=== PATIENT | male | born 1925 | race Caucasian/White ===

== ENCOUNTER 2016-12-11 14:14 | Emergency (ER) | payer OTHER ==
[~2016-12-11 14:14] MED LIST: ASPIRIN81 M1 PO; ATIVAN0.5 MG PO; B-121000 MCG PO; COZAAR50 MG PO; FISH OIL1000 M1; LEVAQUIN500 MG PO; LOVASTATIN40 MG PO; MAGNESIUM400 M1; PRILOSEC20 MG; VITAMIN D-31000 UNIT PO; [UNRECOGNIZED DRUG - OTHER] PO
--- NOTE | 2016-12-11 16:16 | DIAGNOSTIC IMAGING REPORT ---
PROCEDURE: XR ABD SERIES 2V ABD/1V CHEST INDICATION: NAUSEA TECHNIQUE: AP supine and upright views of the abdomen with single view of the chest. COMPARISON: Chest x-ray 07/15/2015. FINDINGS: CHEST: Lungs are clear. Status post mediastinotomy and CABG. Heart size, mediastinum and pulmonary vessels are normal. Bony thorax is unremarkable. ABDOMEN: 1 cm right upper quadrant opacity, artifact versus gallstone. Mild residual stool. Nonspecific right lower quadrant air-fluid levels. No evidence of free air. Severe left hip and lumbar spine degenerative changes. Extensive atherosclerosis of the femoral vessels. IMPRESSION: 1. 1 cm gallstone versus artifact 2. Nonspecific bowel gas pattern.
--- NOTE | 2016-12-11 17:17 | ED CLINICAL REPORT ---
Clinical Report - Physicians/Mid Levels [facility] [address] [place] [address] 12/11/2016 14:15 Patient: NEELAM COSBY Time Seen: 14:41. Arrived- By private vehicle. Historian- spouse. History limited by dementia. Physical Exam limited by dementia. HISTORY OF PRESENT ILLNESS Chief Complaint: spitting up. This started today and is now gone. ([facility]" She isn't sure whether that meant vomiting or coughing. She has noted that he's had a cough productive of a little bit of scant thick white sputum. He says that he feels well denies any pain does not feel short of breath and he denies any nausea or vomiting. His said he has been chronically constipated and that since they've been trying to treat this he occasionally will get some loose stools. She is not sure if he is having a recently). REVIEW OF SYSTEMS No chills, fever, sweats, calf pain or chest pain. No cough, difficulty breathing, pedal edema, palpitations or abdominal pain. No black stools, bloody stools, constipation, diarrhea or nausea. No vomiting or urinary problems. All systems otherwise negative, except as recorded above. PAST HISTORY Problems: Gerd. Alzheimer's Disease. Hypertension. Additional Surgeries: Appendectomy. CABG. Medications: Mom 30ml bid constipation . Enema prn constipation . Bisacodyl Rectal, as needed. Antiacid susp 30ml q 4 hrs prn.. Acetaminophen Oral 650 mg, 3x a day. Vit d3 day. Vit B day. Prazosin HCl Oral (Capsule 2 mg) 1 capsule, at bedtime. Magnesium Oxide -Mg Supplement Oral (Tablet 250 mg) 1/2 tablet, bid . Divalproex Sodium Oral (Tablet Delayed Release 250 mg) 1 tablet, hs. Lovastatin Oral (Tablet 40 mg) 1 tablet, daily. CertaVite/Antioxidants Oral, day. Aspir-81 Oral (Tablet Delayed Release 81 mg). Lisinopril Oral (per , she thinks, unknown dose). Allergies: No Known Drug Allergy. SOCIAL HISTORY No alcohol use or drug use. Resides in a snf. FAMILY HISTORY Denies family medical history. ADDITIONAL NOTES The nursing notes have been reviewed. PHYSICAL EXAM Vital Signs: 12/11/2016 14:37 BP: 154/57. HR: 73. RR: 20. O2 saturation: 98%. Temp: 98.7 F. Pain level now: 0/10. Have been reviewed. Appearance: Alert. He is disoriented, confused and cooperative and appears comfortable and relaxed. He is cheerful. Eyes: Pupils equal, round and reactive to light. ENT: Pharynx normal. Neck: Normal inspection. Neck supple. No meningeal signs or JVD. CVS: Normal heart rate and rhythm. Heart sounds normal. Respiratory: No respiratory distress. Decreased air movement. No rales, rhonchi or wheezes. Abdomen: Soft and nontender. Bowel sounds normal. No organomegaly. No mass. Back: Normal inspection. No CVA tenderness. Skin: Skin warm and dry. Normal skin color. No rash. Normal skin turgor. Extremities: Extremities exhibit normal ROM. No calf tenderness. No lower extremity edema. LABS, X-RAYS, AND EKG EKG: Rate: 70. Occasional ectopic beats. Premature atrial contractions. First-degree atrioventricular block. RBBB. Non-specific ST segment / T wave abnormalities in lead II, III and aVF. EKG unchanged when compared with prior EKG. (15 Jul 2015). The study has been independently viewed by me. KUB: ( Exam(s): XR ABD SERIES 2V ABD/1V CHEST Date of Exam: 12/11/2016 __ PROCEDURE: XR ABD SERIES 2V ABD/1V CHEST INDICATION: NAUSEA TECHNIQUE: AP supine and upright views of the abdomen with single view of the chest. COMPARISON: Chest x-ray 07/15/2015. FINDINGS: CHEST: Lungs are clear. Status post mediastinotomy and CABG. Heart size, mediastinum and pulmonary vessels are normal. Bony thorax is unremarkable. ABDOMEN: 1 cm right upper quadrant opacity, artifact versus gallstone. Mild residual stool. Nonspecific right lower quadrant air-fluid levels. No evidence of free air. Severe left hip and lumbar spine degenerative changes. Extensive atherosclerosis of the femoral vessels. IMPRESSION: 1. 1 cm gallstone versus artifact 2. Nonspecific bowel gas pattern.). The X-rays were interpreted by the radiologist and contemporaneously by me. Laboratory Tests: UA-Culture if indicated: (CLYDE: 12/11/2016 16:50) ( MsgRcvd 12/11/2016 17:13) Final results Test Result Flag Units (Reference) URINE COLOR YELLOW URINE APPEARANCE CLEAR URINE GLUCOSE NEGATIVE (NEGATIVE) URINE BILIRUBIN NEGATIVE (NEGATIVE) URINE KETONE TRACE (NEGATIVE) URINE SPECIFIC GRAVITY 1.025 (1.010-1.030) URINE PH 6.0 (5.0-8.0) URINE PROTEIN TRACE (NEGATIVE) URINE UROBILINOGEN 0.2 EU/dL (0.2-1.0) URINE NITRITE NEGATIVE (NEGATIVE) URINE BLOOD NEGATIVE (NEGATIVE) URINE LEUK ESTERASE NEGATIVE (NEGATIVE) URINE RBC NONE SEEN rbc/hpf (0-1) URINE WBC 0-1 wbc/hpf (0-1) URINE EPITHELIAL CELLS 0-1 EPI/hpf (0-5) URINE BACTERIA NONE SEEN (NONE SEEN) URINE COMMENT CULT NOT INDICATED 1+ MUCUSURINE CULTURES ARE SET-UP BASED ON THE FOLLOWING CRITERIA:POSITIVE NITRITEPOSITIVE LEUKOCYTE ESTERASEGREATER THAN 10 WHITE BLOOD CELLSMODERATE (2+) OR GREATER BACTERIA CBC w Diff: (CLYDE: 12/11/2016 15:30) ( Mscvd 12/11/2016 15:55) Final results Test Result Flag Units (Reference) WHITE BLOOD COUNT 9.0 K/uL (4.5-11.5) RED BLOOD COUNT 4.59 M/uL (4.50-5.90) HEMOGLOBIN 14.2 gm/dL (13.5-17.5) HEMATOCRIT 42.7 % (41.0-53.0) MEAN CELL VOLUME 93 fL (80-100) MEAN CORPUSCULAR HGB 31 pg (26-34) MEAN CORPUSCULAR HGB CONC 33 g/dL (31-37) RED CELL DISTRIBUTION WIDTH 13.7 % (11.6-14.8) PLATELET COUNT 170 K/uL (150-400) NEUTROPHIL % 83.6 H % (50-75) LYMPH % 11.4 L % (25-40) MONO % 4.4 % (3-14) EOSINOPHIL % 0.2 % (0-4) BASOPHIL % 0.4 % (0-2) BNP: (CLYDE: 12/11/2016 15:30) ( MsgRcvd 12/11/2016 16:08) Final results Test Result Flag Units (Reference) B-TYPE NATRIURETIC PEPTIDE 346 H pg/ml (5-100) CMP: (CLYDE: 12/11/2016 15:30) ( MsgRcvd 12/11/2016 16:17) Final results Test Result Flag Units (Reference) GLUCOSE 102 mg/dL (70-110) BUN 26 H mg/dL (7-18) CREATININE 1.5 H mg/dL (0.6-1.3) Estimated GFR 46.84 mL/min Estimated GFR- 56.76 mL/min Note: Persistent reduction over 3 months in eGFR<60 mL/min/1.73 m2 defines CKD. Patients with eGFR values>=60 mL/min/1.73 m2 may also have CKD if evidence ofpersistent proteinuria. Additional information may be foundat www.kidney.org. SODIUM 145 mmol/L (136-145) POTASSIUM 4.1 mmol/L (3.5-5.1) CHLORIDE 109 H mmol/L (98-107) CARBON DIOXIDE 27 mmol/L (21-32) CALCIUM 8.8 mg/dL (8.5-10.1) TOTAL PROTEIN 7.4 g/dL (6.4-8.2) ALBUMIN 3.7 g/dL (3.3-5.0) BILIRUBIN, TOTAL 0.5 mg/dL (0.0-1.0) ALKALINE PHOSPHATASE 75 U/L (46-116) AST (SGOT) 22 U/L (15-37) ALT (SGPT) 27 U/L (12-78) LIPASE 63 L U/L (73-393) AMYLASE 246 H U/L (25-115) CPK 205 U/L (24-260) TROPONIN I 0.06 ng/mL (0.00-1.5) TROPONIN REFERENCE RANGE:<0.1 NEGATIVE0.1-1.5 INDETERMINANT>1.5 POSITIVE . PROGRESS AND PROCEDURES Course of Care: Patient is stable. Patient/family counseled. Old medical records reviewed. Disposition: Discharged. Condition: stable. CLINICAL IMPRESSION Mild congestive heart failure Mild chronic renal insufficiency. INSTRUCTIONS Warnings: GENERAL WARNINGS: Return or contact your physician immediately if your condition worsens or changes unexpectedly, if not improving as expected, or if other problems arise. Your Current Medications: CONTINUE TAKING THE FOLLOWING MEDICATIONS: Acetaminophen Oral : 650 mg 3x a day. Antiacid susp 30ml q 4 hrs prn.*. Aspir-81 Oral : Tablet Delayed Release 81 mg. Bisacodyl Rectal : prn. CertaVite/Antioxidants Oral : day. Divalproex Sodium Oral : Tablet Delayed Release 250 mg, 1 tablet hs. Enema prn constipation *. Lisinopril Oral : per , she thinks, unknown dose. Lovastatin Oral : Tablet 40 mg, 1 tablet daily. Magnesium Oxide -Mg Supplement Oral : Tablet 250 mg, 1/2 tablet bid. Mom 30ml bid constipation *. Prazosin HCl Oral : Capsule 2 mg, 1 capsule at bedtime. Vit B day*. Vit d3 day*. Follow-up: Follow up with your doctor OGRDON MATSON in three days. Call for the next available appointment. Follow up with a literacy education professor- as recommended by your primary care physician. Discharge instructions reviewed with and understanding was verbalized by spouse. (Electronically signed by Geovanni Snider MD 12/12/2016 23:53)
--- NOTE | 2016-12-11 17:17 | ED NURSING NOTES ---
Clinical Report - Nurses [facility] [address] [place] [address] 12/11/2016 14:15 Patient: NEELAM COSBY TRIAGE Triage time 14:30. Acuity: LEVEL 3. Chief Complaint: NAUSEA and VOMITING and CONSTIPATION (Unable to eat breakfast or lunch). Alert. No acute distress. SEPSIS SCREEN: Sepsis Screen: negative. Negative (no infection suspected/documented). --14:51 Mandy Castellanos R.N. 14:37 12/11/16. BP: 154/57. HR: 73. RR: 20. O2 saturation: 98%. Temp: 98.7 F. Pain level now: 0/10. --14:51 Mandy Castellanos R.N. 14:37 12/11/16. BP: 154/57. HR: 73. RR: 20. O2 saturation: 98%. Temp: 98.7 F. Pain level now: 0/10. --14:52 Mandy Castellanos R.N. Weight: 72.5 kg stated. Height/Length: 71 inches Per Patient. BMI: 22.3. --14:50 Mandy Castellanos R.N. Medications Aspir-81 Oral (Tablet Delayed Release 81 mg). Lisinopril Oral (per , she thinks, unknown dose). --14:41 Mandy Castellanos R.N. CertaVite/Antioxidants Oral, day. --14:41 Mandy Castellanos R.N. Lovastatin Oral (Tablet 40 mg) 1 tablet, daily. --14:42 Mandy Castellanos R.N. Divalproex Sodium Oral (Tablet Delayed Release 250 mg) 1 tablet, hs. --14:42 Mandy Castellanos R.N. Magnesium Oxide -Mg Supplement Oral (Tablet 250 mg) 1/2 tablet, bid . --14:43 Mandy Castellanos R.N. Prazosin HCl Oral (Capsule 2 mg) 1 capsule, at bedtime. --14:43 Mandy Castellanos R.N. Vit B day. --14:44 Mandy Castellanos R.N. Vit d3 day. --14:44 Mandy Castellanos R.N. Acetaminophen Oral 650 mg, 3x a day. --14:44 Mandy Castellanos R.N. Antiacid susp 30ml q 4 hrs prn.. --14:45 Mandy Castellanos R.N. Bisacodyl Rectal, as needed. --14:46 Mandy Castellanos R.N. Enema prn constipation . --14:46 Mandy Castellanos R.N. Mom 30ml bid constipation . --14:47 Mandy Castellanos R.N. Medication/allergy information source: the patient's imported external medical record. --14:51 Mandy Castellanos R.N. Allergies No Known Drug Allergy. --14:41 Mandy Castellanos R.N. History Arrived by EMS. Historian: family. Accompanied by family. Primary physician (ce). This started today. He has had nausea, vomiting, diarrhea and constipation. Last oral intake by patient was last night. PAST MEDICAL HX: Immunizations: status is unknown. ( Nausea/vomiting/diarrhea). SOCIAL HX: Smoker- current status unknown. No alcohol use or drug use. No recent travel. No known contact with a sick individual. NUTRITIONAL RISK ASSESSMENT: The nutritional risk assessment revealed no deficiencies. FUNCTIONAL ASSESSMENT: Functional assessment: no impairments noted. FALL RISK ASSESSMENT: Fall risk assessment completed. Risk factors identified include nausea and patient age greater than 65 years and impairment of cognition. Fall interventions initiated. Patient placed on stretcher. Side rails up x2. Brakes on Bed in low position. Patient visible from nurses' station and identified as a fall risk by ID band. Family at bedside. Call light in reach of patient. Instructed not to get up without assistance. LEARNING NEEDS ASSESSMENT: A learning needs assessment was performed. Factors affecting the patient's ability to learn include cognitive limitations. The learning needs assessment was deferred. SKIN INTEGRITY ASSESSMENT: Skin integrity risk assessment completed. No skin integrity risk identified. --14:51 Mandy Castellanos R.N. PROBLEMS: Gerd. Alzheimer's Disease. Hypertension. --14:48 Mandy Castellanos R.N. ADDITIONAL SURGERIES: Appendectomy. CABG. --14:48 Mandy Castellanos R.N. Interventions ID band on patient. To room. --14:51 Mandy Castellanos R.N. PHYSICAL ASSESSMENT Ambulatory to room. Patient gowned. GENERAL / NEURO / PSYCH: Appears anxious. The patient is disoriented to place, time and situation. HEENT: Mucous membranes are pink. RESPIRATORY: Respirations not labored. CVS: Capillary refill less than 2 seconds. GI / : Abdomen nontender. SKIN: Skin is warm and dry. --14:52 Mandy Castellanos R.N. NURSING PROGRESS NOTES Patient gowned. Head of bed elevated. Two patient identifiers checked. Call light placed in reach. Side rails up x 2. Bed placed in lowest position. Brakes of bed on. Patient ready for evaluation- chart flagged. --14:52 Mandy Castellanos R.N. EKG time: (14:54). EKG was ordered, performed by a tech and shown to the ED physician. --14:56 Carlene Wiseman 15:33 12/11/2016 Site #1 started via IV in the right wrist with an 22g angiocath, with aseptic technique and good blood return; one attempt. Saline lock flushed with 10 mL saline. --15:33 Mandy Castellanos R.N. 15:41 12/11/2016 Started bag #1 1000 mL IV Fluids IV NS (Saline); bolus of 500 mL over 30 minute(s) then at 125 mL/hr over 4 hour(s) via site #1 via IV pump. Allergies verified and confirmed 5 rights. IV patency established. IV site checked: no pain, redness, or swelling. IV flushed thoroughly pre- and post-medication administration. --15:41 Mandy Castellanos R.N. 15:41 12/11/2016 Zofran (Ondansetron HCl) IVP 4 mg given over 1 minute(s) via site #1. Allergies verified and confirmed 5 rights. IV patency established. IV site checked: no pain, redness, or swelling. IV flushed thoroughly pre- and post-medication administration. IVP given by RN. --15:42 Mandy Castellanos R.N. 16:16 12/11/2016 IV Fluids IV NS via IV site #1 Rate Changed: bag #1 decreased to 125 mL/hr. IV patency established. IV site checked: no pain, redness, or swelling. IV flushed thoroughly. Confirmed 5 Rights. --16:16 Mandy Castellanos R.N. 17:06 12/11/16. BP: 166/87. HR: 79. RR: 20. O2 saturation: 100% on room air. Pain level now: 0/10. 15:45 12/11/16. BP: 165/59. HR: 79. RR: 10. O2 saturation: 99% on room air. Pain level now: 0/10. --17:07 Mandy Castellanos R.N. Patient ID band checked for patient name: family confirmed. Clean catch urine collected with return of yellow-colored cloudy urine; sample sent to lab for urinalysis and culture. Specimen labeled in the presence of the patient. --17:07 Mandy Castellanos R.N. 16:59 12/11/2016 Site #1 removed. Catheter intact. Bandaid applied (pulled by the patient). --17:10 Mandy Castellanos R.N. 17:10 12/11/2016 Site #2 started via IV in the right antecubital space with an 22g angiocath, with aseptic technique and good blood return; one attempt. Saline lock flushed with 10 mL saline. --17:10 Mandy Castellanos R.N. DISPOSITION / DISCHARGE Condition at departure: improved. No learning barriers present. Spouse verbalized understanding. Written instructions provided in Divehi. The patient was discharged home and accompanied by spouse. He left the Emergency Department ambulatory and via private vehicle. Spouse driving. Medication list reviewed and validated. --18:07 Mandy Castellanos R.N. 18:06 12/11/16. BP: 155/59. HR: 88. RR: 16. O2 saturation: 98%. Temp: 98 F. Pain level now: 0/10. 17:06 12/11/16. BP: 166/87. HR: 79. RR: 20. O2 saturation: 100% on room air. Pain level now: 0/10. 15:45 12/11/16. BP: 165/59. HR: 79. RR: 10. O2 saturation: 99% on room air. Pain level now: 0/10. 14:37 12/11/16. BP: 154/57. HR: 73. RR: 20. O2 saturation: 98%. Temp: 98.7 F. Pain level now: 0/10. --18:07 Mandy Castellanos R.N. Locked/Released at 12/11/2016 18:07 by Mandy Castellanos R.N.
--- NOTE | 2016-12-11 17:17 | ED ORDER SUMMARY ---
..... Patient: NEELAM COSBY OrderSheet [facility] VisitID: [id number] [place] [address] 89y, M Registration Date/Time: 12/11/2016 ORDER SHEET Weight: 72.5 kg (stated) Allergies: No Known Drug Allergy GENERAL ORDERS: Abd Series 2V Abd/1V Chest Urgent (14:42 12/11/2016 Parviz NUNEZ) (Ack 14:45 Devorah) (15:15 Nathaly) Anesthesiology Faculty (Continuous) (14:42 12/11/2016 Parviz NUNEZ) (14:53 SRoberts R.N.) CBC w Diff Urgent (14:42 12/11/2016 Parviz NUNEZ) (Ack 14:45 Devorah) (15:33 SRoberts R.N.) CMP Urgent (14:42 12/11/2016 Parviz NUNEZ) (Ack 14:45 Devorah) (15:34 SRoberts R.N.) UA-Culture if indicated Urgent (14:42 12/11/2016 Parviz NUNEZ) (Ack 14:45 Devorah) (16:59 Alok) Amylase Urgent (14:42 12/11/2016 Parviz NUNEZ) (Ack 14:45 Devorah) (15:34 SRoberts R.N.) Lipase Urgent (14:42 12/11/2016 Parviz NUNEZ) (Ack 14:45 Devorah) (15:34 SRoberts R.N.) CPK Urgent (14:42 12/11/2016 Parviz NUNEZ) (Ack 14:45 Devorah) (15:34 SRoberts R.N.) Troponin-I Urgent (14:42 12/11/2016 Parvzi NUNEZ) (Ack 14:45 Devorah) (15:34 SRoberts R.N.) BNP Urgent (14:42 12/11/2016 Parviz NUNEZ) (Ack 14:45 Devorah) (15:34 SRoberts R.N.) Pulse oximeter (14:42 12/11/2016 Parvzi NUNEZ) (14:53 SRoberts R.N.) EKG - ER Stat (14:42 12/11/2016 Parviz NUNEZ) (Ack 14:48 RKaruga) (14:53 Denise ChavarriaNKeenan) Valproic Acid (Depakene) Urgent (17:16 12/11/2016 Parviz NUNEZ) (Ack 17:36 OHernandez) (17:37 OHtoannandez) MEDICATION ORDERS: IV FLUIDS: IV NS : initial bolus 500 mL (1000 mL/hr), then 125 mL/hr for 4h (NOW); Urgent (14:42 12/11/2016 Parviz NUNEZ) (15:41 Denise Raygoza.NKeenan) Zofran IV 4 mg (NOW) (14:42 12/11/2016 Parviz NUNEZ) (15:42 Denise Raygoza.N.) ORDER SHEET NOTES: [Electronically signed by Mandy Castellanos R.N. (18:07 12/11/2016)] [Electronically signed by Geovanni Snider MD (23:53 12/12/2016)] [Electronically locked/signed by Mandy Castellanos R.N. (18:07 12/11/2016)]
--- NOTE | 2016-12-11 17:17 | ED ORDER SUMMARY ---
..... Patient: NEELAM COSBY OrderSheet [facility] VisitID: [id number] [place] [address] 89y, M Registration Date/Time: 12/11/2016 ORDER SHEET Weight: 72.5 kg (stated) Allergies: No Known Drug Allergy GENERAL ORDERS: Abd Series 2V Abd/1V Chest Urgent (14:42 12/11/2016 Parviz NUNEZ) (Ack 14:45 Devorah) (15:15 Nathaly) Consulting Engineer (Continuous) (14:42 12/11/2016 Parviz NUNEZ) (14:53 SRoberts R.N.) CBC w Diff Urgent (14:42 12/11/2016 Parviz NUNEZ) (Ack 14:45 Devorah) (15:33 SRoberts R.N.) CMP Urgent (14:42 12/11/2016 Parviz NUNEZ) (Ack 14:45 Devorah) (15:34 SRoberts R.N.) UA-Culture if indicated Urgent (14:42 12/11/2016 Parviz NUNEZ) (Ack 14:45 Devorah) (16:59 Alok) Amylase Urgent (14:42 12/11/2016 Parviz NUNEZ) (Ack 14:45 Devorah) (15:34 SRoberts R.N.) Lipase Urgent (14:42 12/11/2016 Parviz NUNEZ) (Ack 14:45 Devorah) (15:34 SRoberts R.N.) CPK Urgent (14:42 12/11/2016 Parviz NUNEZ) (Ack 14:45 Devorah) (15:34 SRoberts R.N.) Troponin-I Urgent (14:42 12/11/2016 Parviz NUNEZ) (Ack 14:45 Devorah) (15:34 SRoberts R.N.) BNP Urgent (14:42 12/11/2016 Parviz NUNEZ) (Ack 14:45 Devorah) (15:34 SRoberts R.N.) Pulse oximeter (14:42 12/11/2016 Parviz NUNEZ) (14:53 SRoberts R.N.) EKG - ER Stat (14:42 12/11/2016 Parvzi NUNEZ) (Ack 14:48 RKaruga) (14:53 Denise ChavarriaNKeenan) Valproic Acid (Depakene) Urgent (17:16 12/11/2016 Parviz NUNEZ) (Ack 17:36 OHernandez) (17:37 OHtoannandez) MEDICATION ORDERS: IV FLUIDS: IV NS : initial bolus 500 mL (1000 mL/hr), then 125 mL/hr for 4h (NOW); Urgent (14:42 12/11/2016 Parviz NUNEZ) (15:41 Denise Raygoza.NKeenan) Zofran IV 4 mg (NOW) (14:42 12/11/2016 Parviz NUNEZ) (15:42 Denise Raygoza.N.) ORDER SHEET NOTES: [Electronically signed by Mandy Castellanos R.N. (18:07 12/11/2016)] [Electronically signed by Geovanni Snider MD (23:53 12/12/2016)] [Electronically locked/signed by Mandy Castellanos R.N. (18:07 12/11/2016)]
--- NOTE | 2016-12-11 17:17 | ED CLINICAL REPORT ---
Clinical Report - Physicians/Mid Levels [facility] [address] [place] [address] 12/11/2016 14:15 Patient: NEELAM COSBY Time Seen: 14:41. Arrived- By private vehicle. Historian- spouse. History limited by dementia. Physical Exam limited by dementia. HISTORY OF PRESENT ILLNESS Chief Complaint: spitting up. This started today and is now gone. ([facility]" She isn't sure whether that meant vomiting or coughing. She has noted that he's had a cough productive of a little bit of scant thick white sputum. He says that he feels well denies any pain does not feel short of breath and he denies any nausea or vomiting. His said he has been chronically constipated and that since they've been trying to treat this he occasionally will get some loose stools. She is not sure if he is having a recently). REVIEW OF SYSTEMS No chills, fever, sweats, calf pain or chest pain. No cough, difficulty breathing, pedal edema, palpitations or abdominal pain. No black stools, bloody stools, constipation, diarrhea or nausea. No vomiting or urinary problems. All systems otherwise negative, except as recorded above. PAST HISTORY Problems: Gerd. Alzheimer's Disease. Hypertension. Additional Surgeries: Appendectomy. CABG. Medications: Mom 30ml bid constipation . Enema prn constipation . Bisacodyl Rectal, as needed. Antiacid susp 30ml q 4 hrs prn.. Acetaminophen Oral 650 mg, 3x a day. Vit d3 day. Vit B day. Prazosin HCl Oral (Capsule 2 mg) 1 capsule, at bedtime. Magnesium Oxide -Mg Supplement Oral (Tablet 250 mg) 1/2 tablet, bid . Divalproex Sodium Oral (Tablet Delayed Release 250 mg) 1 tablet, hs. Lovastatin Oral (Tablet 40 mg) 1 tablet, daily. CertaVite/Antioxidants Oral, day. Aspir-81 Oral (Tablet Delayed Release 81 mg). Lisinopril Oral (per , she thinks, unknown dose). Allergies: No Known Drug Allergy. SOCIAL HISTORY No alcohol use or drug use. Resides in a custodial. FAMILY HISTORY Denies family medical history. ADDITIONAL NOTES The nursing notes have been reviewed. PHYSICAL EXAM Vital Signs: 12/11/2016 14:37 BP: 154/57. HR: 73. RR: 20. O2 saturation: 98%. Temp: 98.7 F. Pain level now: 0/10. Have been reviewed. Appearance: Alert. He is disoriented, confused and cooperative and appears comfortable and relaxed. He is cheerful. Eyes: Pupils equal, round and reactive to light. ENT: Pharynx normal. Neck: Normal inspection. Neck supple. No meningeal signs or JVD. CVS: Normal heart rate and rhythm. Heart sounds normal. Respiratory: No respiratory distress. Decreased air movement. No rales, rhonchi or wheezes. Abdomen: Soft and nontender. Bowel sounds normal. No organomegaly. No mass. Back: Normal inspection. No CVA tenderness. Skin: Skin warm and dry. Normal skin color. No rash. Normal skin turgor. Extremities: Extremities exhibit normal ROM. No calf tenderness. No lower extremity edema. LABS, X-RAYS, AND EKG EKG: Rate: 70. Occasional ectopic beats. Premature atrial contractions. First-degree atrioventricular block. RBBB. Non-specific ST segment / T wave abnormalities in lead II, III and aVF. EKG unchanged when compared with prior EKG. (15 Jul 2015). The study has been independently viewed by me. KUB: ( Exam(s): XR ABD SERIES 2V ABD/1V CHEST Date of Exam: 12/11/2016 __ PROCEDURE: XR ABD SERIES 2V ABD/1V CHEST INDICATION: NAUSEA TECHNIQUE: AP supine and upright views of the abdomen with single view of the chest. COMPARISON: Chest x-ray 07/15/2015. FINDINGS: CHEST: Lungs are clear. Status post mediastinotomy and CABG. Heart size, mediastinum and pulmonary vessels are normal. Bony thorax is unremarkable. ABDOMEN: 1 cm right upper quadrant opacity, artifact versus gallstone. Mild residual stool. Nonspecific right lower quadrant air-fluid levels. No evidence of free air. Severe left hip and lumbar spine degenerative changes. Extensive atherosclerosis of the femoral vessels. IMPRESSION: 1. 1 cm gallstone versus artifact 2. Nonspecific bowel gas pattern.). The X-rays were interpreted by the radiologist and contemporaneously by me. Laboratory Tests: UA-Culture if indicated: (CLYDE: 12/11/2016 16:50) ( MsgRcvd 12/11/2016 17:13) Final results Test Result Flag Units (Reference) URINE COLOR YELLOW URINE APPEARANCE CLEAR URINE GLUCOSE NEGATIVE (NEGATIVE) URINE BILIRUBIN NEGATIVE (NEGATIVE) URINE KETONE TRACE (NEGATIVE) URINE SPECIFIC GRAVITY 1.025 (1.010-1.030) URINE PH 6.0 (5.0-8.0) URINE PROTEIN TRACE (NEGATIVE) URINE UROBILINOGEN 0.2 EU/dL (0.2-1.0) URINE NITRITE NEGATIVE (NEGATIVE) URINE BLOOD NEGATIVE (NEGATIVE) URINE LEUK ESTERASE NEGATIVE (NEGATIVE) URINE RBC NONE SEEN rbc/hpf (0-1) URINE WBC 0-1 wbc/hpf (0-1) URINE EPITHELIAL CELLS 0-1 EPI/hpf (0-5) URINE BACTERIA NONE SEEN (NONE SEEN) URINE COMMENT CULT NOT INDICATED 1+ MUCUSURINE CULTURES ARE SET-UP BASED ON THE FOLLOWING CRITERIA:POSITIVE NITRITEPOSITIVE LEUKOCYTE ESTERASEGREATER THAN 10 WHITE BLOOD CELLSMODERATE (2+) OR GREATER BACTERIA CBC w Diff: (CLYDE: 12/11/2016 15:30) ( Mscvd 12/11/2016 15:55) Final results Test Result Flag Units (Reference) WHITE BLOOD COUNT 9.0 K/uL (4.5-11.5) RED BLOOD COUNT 4.59 M/uL (4.50-5.90) HEMOGLOBIN 14.2 gm/dL (13.5-17.5) HEMATOCRIT 42.7 % (41.0-53.0) MEAN CELL VOLUME 93 fL (80-100) MEAN CORPUSCULAR HGB 31 pg (26-34) MEAN CORPUSCULAR HGB CONC 33 g/dL (31-37) RED CELL DISTRIBUTION WIDTH 13.7 % (11.6-14.8) PLATELET COUNT 170 K/uL (150-400) NEUTROPHIL % 83.6 H % (50-75) LYMPH % 11.4 L % (25-40) MONO % 4.4 % (3-14) EOSINOPHIL % 0.2 % (0-4) BASOPHIL % 0.4 % (0-2) BNP: (CLYDE: 12/11/2016 15:30) ( MsgRcvd 12/11/2016 16:08) Final results Test Result Flag Units (Reference) B-TYPE NATRIURETIC PEPTIDE 346 H pg/ml (5-100) CMP: (CLYDE: 12/11/2016 15:30) ( MsgRcvd 12/11/2016 16:17) Final results Test Result Flag Units (Reference) GLUCOSE 102 mg/dL (70-110) BUN 26 H mg/dL (7-18) CREATININE 1.5 H mg/dL (0.6-1.3) Estimated GFR 46.84 mL/min Estimated GFR- 56.76 mL/min Note: Persistent reduction over 3 months in eGFR<60 mL/min/1.73 m2 defines CKD. Patients with eGFR values>=60 mL/min/1.73 m2 may also have CKD if evidence ofpersistent proteinuria. Additional information may be foundat www.kidney.org. SODIUM 145 mmol/L (136-145) POTASSIUM 4.1 mmol/L (3.5-5.1) CHLORIDE 109 H mmol/L (98-107) CARBON DIOXIDE 27 mmol/L (21-32) CALCIUM 8.8 mg/dL (8.5-10.1) TOTAL PROTEIN 7.4 g/dL (6.4-8.2) ALBUMIN 3.7 g/dL (3.3-5.0) BILIRUBIN, TOTAL 0.5 mg/dL (0.0-1.0) ALKALINE PHOSPHATASE 75 U/L (46-116) AST (SGOT) 22 U/L (15-37) ALT (SGPT) 27 U/L (12-78) LIPASE 63 L U/L (73-393) AMYLASE 246 H U/L (25-115) CPK 205 U/L (24-260) TROPONIN I 0.06 ng/mL (0.00-1.5) TROPONIN REFERENCE RANGE:<0.1 NEGATIVE0.1-1.5 INDETERMINANT>1.5 POSITIVE . PROGRESS AND PROCEDURES Course of Care: Patient is stable. Patient/family counseled. Old medical records reviewed. Disposition: Discharged. Condition: stable. CLINICAL IMPRESSION Mild congestive heart failure Mild chronic renal insufficiency. INSTRUCTIONS Warnings: GENERAL WARNINGS: Return or contact your physician immediately if your condition worsens or changes unexpectedly, if not improving as expected, or if other problems arise. Your Current Medications: CONTINUE TAKING THE FOLLOWING MEDICATIONS: Acetaminophen Oral : 650 mg 3x a day. Antiacid susp 30ml q 4 hrs prn.*. Aspir-81 Oral : Tablet Delayed Release 81 mg. Bisacodyl Rectal : prn. CertaVite/Antioxidants Oral : day. Divalproex Sodium Oral : Tablet Delayed Release 250 mg, 1 tablet hs. Enema prn constipation *. Lisinopril Oral : per , she thinks, unknown dose. Lovastatin Oral : Tablet 40 mg, 1 tablet daily. Magnesium Oxide -Mg Supplement Oral : Tablet 250 mg, 1/2 tablet bid. Mom 30ml bid constipation *. Prazosin HCl Oral : Capsule 2 mg, 1 capsule at bedtime. Vit B day*. Vit d3 day*. Follow-up: Follow up with your doctor GORDON MATSON in three days. Call for the next available appointment. Follow up with a acid etch operator- as recommended by your primary care physician. Discharge instructions reviewed with and understanding was verbalized by spouse. (Electronically signed by Geovanni Snider MD 12/12/2016 23:53)
--- NOTE | 2016-12-12 23:53 | ED MAR SUMMARY ---
..... Medication Administration Record [facility] [address] [place] [address] Patient: NEELAM COSBY Visit ID: [id number] 89y, M Weight: 72.5 kg Height/Length: 71 in BMI: 22.3 ALLERGIES: No Known Drug Allergy Start 15:41 12/11/2016 Mandy Castellanos R.N. Medication Administered: IV NS (SALINE), Dose: IV Fluids over 4 hour(s), Rate: 125 mL/hr, Bolus: 500 mL over 30 minute(s), Dispensed: 1000 mL bag, Site: #1 right wrist. Medication Ordered: IV NS : initial bolus 500 mL (1000 mL/hr), then 125 mL/hr for 4h (NOW); Urgent. Given 15:41 12/11/2016 Mandy Castellanos R.N. Medication Administered: ZOFRAN [IVP] (ONDANSETRON HCL), Dose: 4 mg IVP over 1 minute(s), Site: #1 right wrist. Medication Ordered: Zofran IV 4 mg (NOW).
--- NOTE | 2016-12-12 23:53 | ED DISCHARGE INSTRUCTIONS ---
Patient: NEELAM COSBY General Instructions [facility] VisitID: [id number] [place] [address] 89y, M Registration Date/Time: 12/11/2016 Mild congestive heart failure Mild chronic renal insufficiency. INSTRUCTIONS Warnings: GENERAL WARNINGS: Return or contact your physician immediately if your condition worsens or changes unexpectedly, if not improving as expected, or if other problems arise. Your Current Medications: CONTINUE TAKING THE FOLLOWING MEDICATIONS: Acetaminophen Oral : 650 mg 3x a day. Antiacid susp 30ml q 4 hrs prn.*. Aspir-81 Oral : Tablet Delayed Release 81 mg. Bisacodyl Rectal : prn. CertaVite/Antioxidants Oral : day. Divalproex Sodium Oral : Tablet Delayed Release 250 mg, 1 tablet hs. Enema prn constipation *. Lisinopril Oral : per , she thinks, unknown dose. Lovastatin Oral : Tablet 40 mg, 1 tablet daily. Magnesium Oxide -Mg Supplement Oral : Tablet 250 mg, 1/2 tablet bid. Mom 30ml bid constipation *. Prazosin HCl Oral : Capsule 2 mg, 1 capsule at bedtime. Vit B day*. Vit d3 day*. Follow-up: Follow up with your doctor GORDON MATSON in three days. Call for the next available appointment. Follow up with a him assistant- as recommended by your primary care physician. Discharge instructions reviewed with and understanding was verbalized by spouse. ADDITIONAL INFORMATION Heart Failure (Left Or Right Sided) The heart is a large muscle that pumps blood throughout the body. Blood carries oxygen to all the organs, muscles, and skin of your body. After the body takes the oxygen out of the blood, the blood returns to the heart. The right side of the heart collects that blood and pumps it to the lungs to receive fresh oxygen. This oxygen-rich blood from the lungs then returns to the left side of the heart where it is pumped back out to the rest of the body, starting the process all over. Heart Failure (HF) occurs when the heart muscle is weakened. This affects the pumping action of the heart. When the right side of the heart is weakened, it cant handle the blood it is receiving from the rest of the body. This blood returns to the heart through veins. When too much pressure builds up in the veins fluid leaks out into the tissues. [place] then causes that fluid to spread to those parts of the body that are the lowest. Therefore, one of the first symptoms of HF include swelling in the feet and ankles. If the condition worsens, the swelling can even go up past the knees. When the left side of the heart is weakened, it cant handle the blood it is receiving from the lungs. Pressure then builds up in the veins of the lungs, causing fluid to leakinto the lung tissues. This may be referred to as congestive heart failure.This causes you to feel short of breath, weak, or dizzy. These symptoms are often worse with exertion, such as climbing stairs or walking up hills. Lying flat is uncomfortable and can make your breathing worse. This may make sleeping difficult and force you to useextra pillows to sleep well. This condition may not only affect the right side of the heart or only the left side. While it may have started on one side, it often affects both sides. Causes of heart failure Coronary artery disease Prior heart attack (also known as acute myocardial infarction, or AMI) High blood pressure Damaged heart valve Diabetes Obesity Cigarette smoking Alcohol abuse Treatment Heart failure is a chronic condition. There is no cure. The purpose of medical treatment is to improve the pumping action of the heart, and remove excess water from the body. A number of medications can help achieve this goal,improvesymptoms and prevent the heart from becoming weaker. Another major goal is to better treat the caues of heart failure, such as diabetes, high blood pressure, and your lifestyle. Home care Check your weight every day. A sudden increase in weight gain could mean worsening heart failure. Use the same scale every day Weigh yourself at the same time every day Make sure the scale is on the floor, not on a rug Keep a record of your weight every day, so your doctor can see it. If you are not given a log sheet for this, keep a separate journal for this purpose. Reduce your salt (sodium) intake. Avoid high-salt foods (olives, pickles, smoked meats, salted potato chips, etc.). Do not add salt to your food at the table and use only small amounts of salt when cooking. Follow your doctors recommendations about how much fluid intake is safe. Stop smoking. Reduce alcohol use. Lose weight if you are overweight. The excess weight adds a lot of stress on the workload of the heart. Stay active. Talk to your doctor about an exercise program that is safe for your heart. Keep your feet elevated to reduce swelling. Ask your doctor about support hose as a preventive treatment for daytime leg swelling. Besides taking your medicine as instructed, an important part of treatment includes lifestyle changes such as diet, physical activity, stopping smoking, and weight control. Improve your diet. Often in the hospital, people are given a "heart healthy diet." This includes more fresh foods, lower fat, less processed foots, and lower salt. Follow-up care Follow up with your doctor as directed by our staff. Make sure to keep any appointments that were made for you as this can help better control heart failure. If an X-ray was done, you will be notified of any new findings that may affect your care. Call 911 Call 911 if you: Become severely short of breath Feel lightheaded, or feel like you might pass out or faint Have chest pain or discomfort that is different than usual, the medicines your doctor told you to use for this do not help, or the pain lasts longer than 10 to 15 minutes Suddendly develop a rapid heart rate When to seek medical care Get prompt medical attention if you have any of the following signs of worsening heart failure: Sudden weight gain (3or more pounds in one day or5or more pounds in one week) Trouble breathing not related to being active New or increased swelling of your legs or ankles Swelling or pain in your abdomen Breathing trouble at night (waking up short of breath, needing more pillows to breathe) Frequent coughing that doesnt go away Feeling much more tired than usual Renal Insufficiency The role of the kidneys is to remove waste products and excess water from the body. When the kidneys do not function normally, waste products build up in the blood.The early stage of this process is called renal insufficiency . If renal insufficiency worsens it can lead to chronic renal failure. This allows excess water, waste and toxic substances to build up in the body. This can become a threat to life, requiring dialysis or a kidney transplant to stay alive. Diabetes is the leading causes of renal insufficiency. Other causes include high blood pressure, hardening of the arteries, lupus, inflammation of the blood vessels (vasculitis), prior viral and bacterial infections, and others. Certain [id number]-[id number]-[id number] pain medicines can cause renal failure when taken often over a long period of time. These include aspirin, ibuprofen (Advil, Motrin) and related anti-inflammatory medicines. Home Care: If you have diabetes, talk to your doctor about the quality of your blood sugar control.Ask about any changes needed to your diet or medicines. If you have high blood pressure: Take your blood pressure medicine. Take up a regular exercise program that you enjoy.Check with your doctor to be sure your planned exercise program is right for you. Reduce your salt (sodium) intake.Your doctor can tell you how much salt per day is safe for you. If you are overweight, talk to your doctor about a weight loss plan. If you smoke, you must quit.Smoking worsens kidney disease.Talk to your doctor about ways to help you quit.For more information, visit the following links: www.smokefree.gov/pubs/clearing_the_air.pdf www.smokefree.gov www.moneymeetsnet.com Talk to your doctor about any dietary restrictions advised. In general, it is advisable to limit protein, salt, potassium and phosphorus.Avoid excess fluids. Do not add salt at the table and avoid salty foods.A calcium supplement may be prescribed to protect your bones from osteoporosis. Avoid the following over the counter medicines, or consult your doctor before using: Aspirin and anti-inflammatory drugs such as ibuprofen (Advil, Motrin), naprosyn (Aleve); [Short term use of acetaminophen (Tylenol) for fever or pain is okay.] Laxatives and antacids containing magnesium or aluminum (Mylanta, Maalox) Avoid Fleet or phosphosoda enemas which contain phosphorus Certain stomach acid-blocking medicine such as cimetidine (Tagamet), ranitidine (Zantac) Decongestants containing pseudoephedrine (such as some forms of Sudafed or Actifed) Herbal supplements Follow Up with your doctor or as advised by our staff. Contact one of the following for more information. [place] [phone] www.aakp.org National Kidney Foundation www.kidney.org Return Promptly or contact your doctor if any of the following occurs: Nausea or vomiting Severe weakness, dizziness, fainting, drowsiness or confusion Chest pain or shortness of breath Unexpected weight gain or swelling in the legs, ankles or around the eyes Heart beating fast, slow or irregularly Decrease or loss in urine output You have been given the following additional information: Heart Failure, General Renal Insufficiency (Electronically signed by Geovanni Snider MD 12/12/2016 23:53)
--- NOTE | 2016-12-12 23:53 | ED MAR SUMMARY ---
..... Medication Administration Record [facility] [address] [place] [address] Patient: NEELAM COSBY Visit ID: [id number] 89y, M Weight: 72.5 kg Height/Length: 71 in BMI: 22.3 ALLERGIES: No Known Drug Allergy Start 15:41 12/11/2016 Mandy Castellanos R.N. Medication Administered: IV NS (SALINE), Dose: IV Fluids over 4 hour(s), Rate: 125 mL/hr, Bolus: 500 mL over 30 minute(s), Dispensed: 1000 mL bag, Site: #1 right wrist. Medication Ordered: IV NS : initial bolus 500 mL (1000 mL/hr), then 125 mL/hr for 4h (NOW); Urgent. Given 15:41 12/11/2016 Mandy Castellanos R.N. Medication Administered: ZOFRAN [IVP] (ONDANSETRON HCL), Dose: 4 mg IVP over 1 minute(s), Site: #1 right wrist. Medication Ordered: Zofran IV 4 mg (NOW).
--- NOTE | 2016-12-12 23:54 | ED MED RECONCILIATION SUMMARY ---
Patient: NEELAM COSBY Medication Reconciliation Report [facility] VisitID: [id number] [address] [place] [address] 89y, M Registration Date/Time: 12/11/2016 Weight: 72.5 kg Height/Length: 71 in. BMI: 22.3 ALLERGIES: No Known Drug Allergy The patient's Home Medications are listed below: CONTINUE TAKING THE FOLLOWING MEDICATIONS: Acetaminophen Oral 650 mg, 3x a day Antiacid susp 30ml q 4 hrs prn. Aspir-81 Oral (81 mg) Bisacodyl Rectal CertaVite/Antioxidants Oral, day Divalproex Sodium Oral (250 mg) 1 tablet, hs Enema prn constipation Lisinopril Oral, per , she thinks, unknown dose Lovastatin Oral (40 mg) 1 tablet, daily Magnesium Oxide -Mg Supplement Oral (250 mg) 1/2 tablet, bid Mom 30ml bid constipation Prazosin HCl Oral (2 mg) 1 capsule, at bedtime Vit B day Vit d3 day The source(s) of the original Home Medication information: patient's imported external medical record The following Medications were given to the patient in the Emergency Department: IV NS IV Fluids bolus 500 mL over 30 minute(s), then 125 mL/hr, administered: 12/11/2016 3:41:00 PM Zofran [IVP] IVP 4 mg, administered: 12/11/2016 3:41:00 PM The following Medications were prescribed to the patient: None.
--- NOTE | 2016-12-12 23:54 | ED MED RECONCILIATION SUMMARY ---
Patient: NEELAM COSBY Medication Reconciliation Report [facility] VisitID: [id number] [address] [place] [address] 89y, M Registration Date/Time: 12/11/2016 Weight: 72.5 kg Height/Length: 71 in. BMI: 22.3 ALLERGIES: No Known Drug Allergy The patient's Home Medications are listed below: CONTINUE TAKING THE FOLLOWING MEDICATIONS: Acetaminophen Oral 650 mg, 3x a day Antiacid susp 30ml q 4 hrs prn. Aspir-81 Oral (81 mg) Bisacodyl Rectal CertaVite/Antioxidants Oral, day Divalproex Sodium Oral (250 mg) 1 tablet, hs Enema prn constipation Lisinopril Oral, per , she thinks, unknown dose Lovastatin Oral (40 mg) 1 tablet, daily Magnesium Oxide -Mg Supplement Oral (250 mg) 1/2 tablet, bid Mom 30ml bid constipation Prazosin HCl Oral (2 mg) 1 capsule, at bedtime Vit B day Vit d3 day The source(s) of the original Home Medication information: patient's imported external medical record The following Medications were given to the patient in the Emergency Department: IV NS IV Fluids bolus 500 mL over 30 minute(s), then 125 mL/hr, administered: 12/11/2016 3:41:00 PM Zofran [IVP] IVP 4 mg, administered: 12/11/2016 3:41:00 PM The following Medications were prescribed to the patient: None.
== END 2016-12-11 18:05 | disposition home or self-care (01) ==
LOC: ED SRH 14:14
DX: I13.0 Hypertensive heart and chronic kidney disease with heart failure and stage 1 through stage 4 chronic kidney disease, or unspecified chronic kidney disease (principal); N18.2 Chronic kidney disease, stage 2 (mild); I50.9 Heart failure, unspecified; Z79.82 Long term (current) use of aspirin; Z79.899 Other long term (current) drug therapy; Z79.1 Long term (current) use of non-steroidal anti-inflammatories (NSAID); Z87.891 Personal history of nicotine dependence
CPT/HCPCS: 90004; 90100; 90616; 91285; 91320; 92235; 92530; 92610; 95059